=== PATIENT | male | born 1975 | race Caucasian/White ===

== ENCOUNTER 2017-12-11 07:03 | Emergency (ER) | payer MEDICAID, OTHER ==
[2017-12-11 07:09] VITALS: TEMP 98.1
[2017-12-11] MEDS ORDERED: Sodium Chloride 0.9% 1,000 ML IV ONE (07:33)
--- NOTE | 2017-12-11 07:35 | C.PDOC ---
History Of Present Illness 42 y/o male with history of ETOH abuse presents to ED stating he has been drinking for 4 days and is complaining of abdominal pain and vomiting. Patient denies fever, chills, diarrhea, back pain or any other complaints at this time. Patient has prior visits to ED for detox Time Seen by Provider: 12/11/17 07:21 Chief Complaint (Nursing): Abdominal Pain History Per: Patient History/Exam Limitations: no limitations Onset/Duration Of Symptoms: Days Current Symptoms Are (Timing): Still Present Past Medical History Reviewed: Historical Data, Nursing Documentation, Vital Signs Vital Signs: Last Vital Signs Temp 98.1 F 12/11/17 07:08 Pulse 105 H 12/11/17 10:06 Resp 18 12/11/17 10:06 BP 113/74 12/11/17 10:06 Pulse Ox 98 12/11/17 10:06 - Medical History PMH: Gastritis, HTN (no meds) Surgical History: No Surg Hx - [facility] Procedures ALCOHOL DETOXIFICATION (04/01/14) DETOXIFICATION SERVICES FOR SUBSTANCE ABUSE TREATMENT (08/04/16) GROUP PHOTOGRAPHIC EQUIPMENT INSPECTOR FOR SUBSTANCE ABUSE, COGNITIVE BEHAVIORAL (08/04/16) INTRODUCTION OF SERUM/TOX/VACCINE INTO MUSCLE, PERC APPROACH (02/11/16) Family History: States: No Known Family Hx - Social History Hx Tobacco Use: No Hx Alcohol Use: Yes Hx Substance Use: No - Immunization History Hx Tetanus Toxoid Vaccination: No Hx Influenza Vaccination: No Hx Pneumococcal Vaccination: No Review Of Systems Constitutional: Negative for: Fever, Chills Gastrointestinal: Positive for: Vomiting, Abdominal Pain Skin: Negative for: Rash Physical Exam - Physical Exam Appears: Non-toxic, No Acute Distress, Other (Mild tremors noted) Skin: Warm, Dry, No Rash Head: Atraumatic, Normacephalic Oral Mucosa: Moist Neck: Normal ROM, Supple Cardiovascular: Rhythm Regular Respiratory: Normal Breath Sounds, No Rales, No Rhonchi, No Wheezing Gastrointestinal/Abdominal: Soft, Tenderness (Upper abdomen), No Guarding, No Rebound Back: No CVA Tenderness Extremity: Normal ROM, Capillary Refill (<2 seconds) Neurological/Psych: Oriented x3, Normal Motor, Normal Sensation ED Course And Treatment - Laboratory Results Result Diagrams: 12/11/17 07:53 12/11/17 07:53 Lab Interpretation: Normal O2 Sat by Pulse Oximetry: 97 (RA) Pulse Ox Interpretation: Normal Progress Note: Treated with IVF NSS and Librium 25 mg PO. On re-evaluation abdomen soft nontender. declines detox evaluation, requesting discharge Reassessment Condition: Improved Medical Decision Making Medical Decision Making: Plan: Blood work, UA, Zofran and Iv fluids Disposition Counseled Patient/Family Regarding: Studies Performed, Diagnosis, Need For Followup - Disposition Referrals: Alcoholics Anonymous [Outside] [facility] [Outside] [facility] [Outside] Disposition: HOME/ ROUTINE Disposition Time: 10:00 Condition: STABLE Additional Instructions: Return to ED if any increase symptoms Stop alcohol use Instructions: Acute Nausea and Vomiting (ED), Alcohol Use Disorder (ED) Forms: [employer] ([place]) - POA Present On Arrival: None - Clinical Impression Clinical Impression: Nausea, Vomiting, Alcohol abuse - PA / TRICK RODEO RIDER / Resident Statement MD/DO has reviewed & agrees with the documentation as recorded. - Scribe Statement The provider has reviewed the documentation as recorded by the Clair Hassan All medical record entries made by the Jaquanibbelem were at my direction and personally dictated by me. I have reviewed the chart and agree that the record accurately reflects my personal performance of the history, physical exam, medical decision making, and the department course for this patient. I have also personally directed, reviewed, and agree with the discharge instructions and disposition.
[2017-12-11] MEDS ORDERED: Sodium Chloride 0.9% 1,000 ML ONE (07:54)
[2017-12-11 08:06] LABS: BASO % 0.5 % (0.0-2.0); EOS % 0.3 % (0.0-4.0); HEMOGLOBIN 16.9 g/dL (12.0-18.0); LYMPH # 1.4 K/uL (1.0-4.3); LYMPH % 15.2 % (20.0-40.0); MEAN CELL VOLUME 85.5 fL (80.0-94.0); MEAN CORPUSCULAR HEMOGLOBIN 29.8 pg (27.0-31.0); MEAN CORPUSCULAR HGB CONC 34.9 g/dL (33.0-37.0); MEAN PLATELET VOLUME 9.5 fL (7.2-11.7); MONO # 0.4 K/uL (0.0-0.8); MONO % 4.7 % (0.0-10.0); NEUT # 7.5 K/uL (1.8-7.0); NEUT % 79.3 % (50.0-75.0); RBC 5.68 Mil/uL (4.40-5.90); RED CELL DISTRIBUTION WIDTH 13.1 % (11.5-14.5); WHITE BLOOD COUNT 9.5 K/uL (4.8-10.8)
[2017-12-11 08:26] LABS: ALB/GLOB RATIO 1.3 (1.0-2.1); ALBUMIN 4.6 g/dL (3.5-5.0); ALT/SGPT 32 U/L (21-72); AST/SGOT 41 U/L (17-59); BLOOD UREA NITROGEN 20 mg/dL (9-20); CALCIUM 9.1 mg/dl (8.6-10.4); GFR AFRICAN-AMERICAN > 60; GFR NON-AFRICAN AMERICAN > 60; LIPASE 92 U/L (23-300); URINE BACTERIA RARE (<OCC); URINE BILIRUBIN NEGATIVE (NEGATIVE); URINE BLOOD NEGATIVE (NEGATIVE); URINE CLARITY Hazy (Clear); URINE COLOR Yellow (YELLOW); URINE GLUCOSE (UA) NORMAL (Normal); URINE LEUKOCYTE ESTERASE NEG Leu/uL (Negative); URINE NITRATE NEGATIVE (NEGATIVE); URINE PROTEIN 1+ mg/dL (NEGATIVE)
[2017-12-11 08:42] LABS: BARBITURATES, UR NEGATIVE (NEGATIVE); BENZODIAZEPINES, UR NEGATIVE (NEGATIVE); OPIATES, UR NEGATIVE (NEGATIVE); PHENCYCLIDINE, UR NEGATIVE (NEGATIVE)
[2017-12-11 10:07] VITALS: BP 113/74; PULSE 105; RESP 18
[2017-12-11 18:15] VITALS: O2SAT 97
== END 2017-12-11 10:08 | disposition home or self-care (01) ==
LOC: C.ER 07:03
DX: R11.2 Nausea with vomiting, unspecified (principal); F10.10 Alcohol abuse, uncomplicated; Y90.2 Blood alcohol level of 40-59 mg/100 ml
CPT/HCPCS: 80053; 80320; 80324; 80345; 80346; 80349; 80353; 80358; 80361; 81001; 83690; 83992; 85025; 96361; 96374; 96375; 99285; J2405; J7040

== ENCOUNTER 2018-02-13 14:19 | Emergency (ER) | payer OTHER ==
[2018-02-13 15:43] LABS: BASO % 0.4 % (0.0-2.0); EOS % 0.3 % (0.0-4.0); LYMPH # 0.7 K/uL (1.0-4.3); LYMPH % 9.9 % (20.0-40.0); MEAN CELL VOLUME 86.1 fL (80.0-94.0); MEAN CORPUSCULAR HGB CONC 34.8 g/dL (33.0-37.0); MEAN PLATELET VOLUME 8.4 fL (7.2-11.7); MONO # 0.4 K/uL (0.0-0.8); MONO % 5.3 % (0.0-10.0); NEUT # 5.8 K/uL (1.8-7.0); NEUT % 84.1 % (50.0-75.0); NRBC % 0.1 % (0.0-2.0); PLATELET COUNT 173 K/uL (130-400); RBC 5.67 Mil/uL (4.40-5.90); RED CELL DISTRIBUTION WIDTH 13.5 % (11.5-14.5); WHITE BLOOD COUNT 6.9 K/uL (4.8-10.8)
[2018-02-13] MEDS ORDERED: Folic Acid 1 MG, Thiamine 100 MG, Multivitamin (MVI) 10 ML in Dextrose 5% In Water 1,00... IV SCH (15:45)
[2018-02-13 16:08] LABS: ALB/GLOB RATIO 1.2 (1.0-2.1); ALBUMIN 5.1 g/dL (3.5-5.0); ALT/SGPT 173 U/L (21-72); AST/SGOT 245 U/L (17-59); BLOOD UREA NITROGEN 18 mg/dL (9-20); CALCIUM 9.1 mg/dl (8.6-10.4); GFR AFRICAN-AMERICAN > 60; GFR NON-AFRICAN AMERICAN > 60; LIPASE 128 U/L (23-300)
[2018-02-13 16:32] LABS: SQUAMOUS EPITHIAL < 1 /hpf (0-5); URINE BILIRUBIN NEGATIVE (NEGATIVE); URINE BLOOD 1+ (NEGATIVE); URINE CLARITY Hazy (Clear); URINE GLUCOSE (UA) NORMAL (Normal); URINE LEUKOCYTE ESTERASE NEG Leu/uL (Negative); URINE PROTEIN 3+ mg/dL (NEGATIVE)
[2018-02-13 16:35] LABS: URINE COLOR YELLOW (YELLOW)
[2018-02-13] MEDS ORDERED: Aluminum Hydroxide/Magnesium Hydroxide Susp (30 mL) PO STA (16:45)
[2018-02-13 16:58] LABS: BARBITURATES, UR NEGATIVE (NEGATIVE); BENZODIAZEPINES, UR NEGATIVE (NEGATIVE); OPIATES, UR NEGATIVE (NEGATIVE); PHENCYCLIDINE, UR NEGATIVE (NEGATIVE)
[2018-02-13] MEDS ORDERED: Folic Acid 1 MG, Thiamine 100 MG, Multivitamin (MVI) 10 ML in Sodium Chloride 0.9% 1,00... IV ONE (17:00)
[2018-02-13] MEDS ORDERED: Morphine 4 MG/ML VIAL ONE (17:02)
[2018-02-13] MEDS ORDERED: Aluminum Hydroxide/Magnesium Hydroxide Susp (30 mL) ONE (17:03)
--- NOTE | 2018-02-13 17:22 | RAD ---
PROCEDURE: Chest radiograph dated 02/13/2018 HISTORY: Detox. Psych COMPARISON: None available. FINDINGS: LUNGS: Clear. PLEURA: No pneumothorax or pleural fluid seen. CARDIOVASCULAR: Normal. OSSEOUS STRUCTURES: No significant abnormalities. VISUALIZED UPPER ABDOMEN: Normal. OTHER FINDINGS: None. IMPRESSION: No active disease.
[2018-02-13 17:39] LABS: LYMPHOCYTE 5 % (20-40); MONOCYTE 8 % (0-10); NEUTROPHIL 87 % (50-75); TOTAL CELLS COUNTED 100
[2018-02-13 17:40] LABS: ANISOCYTOSIS SLIGHT; OVALOCYTES SLIGHT; PLATELET ESTIMATE NORMAL (NORMAL); POIKILOCYTOSIS SLIGHT
--- NOTE | 2018-02-13 18:01 | C.PDOC ---
History Of Present Illness 42 year old male, whose PMHx includes alcoholism, presents to the ED for evaluation of epigastric abdominal pain and states he is feeling tremulous. Patient states he was sober for around 7 months while he was in a program. Upon release from the program, patient gradually started drinking again. Patient admits he has been drinking day/night and has been eating very little for the past 3 weeks. Patient states he drinks Vodka and his last drink was this morning. Patient states his pain is sharp and is associated with nausea, vomiting, and blood-streaked stool. He denies fever, chills, headache, dizziness. Time Seen by Provider: 02/13/18 15:00 Chief Complaint (Nursing): Substance Abuse History Per: Patient History/Exam Limitations: no limitations Onset/Duration Of Symptoms: Hrs Current Symptoms Are (Timing): Still Present Suicide/Self Injury Attempted (Context): None Modifying Factor(s): Alcohol Additional History Per: Patient Past Medical History Reviewed: Historical Data, Nursing Documentation, Vital Signs Vital Signs: Last Vital Signs Temp 97.8 F 02/13/18 14:48 Pulse 101 H 02/13/18 14:48 Resp 20 02/13/18 14:48 BP 144/88 02/13/18 14:48 Pulse Ox 98 02/13/18 18:20 - Medical History PMH: Gastritis, HTN (no meds) Denies: Diabetes, Hepatitis, HIV, Chronic Kidney Disease, Seizures, Sexually Transmitted Disease Surgical History: No Surg Hx - [facility] Procedures ALCOHOL DETOXIFICATION (04/01/14) DETOXIFICATION SERVICES FOR SUBSTANCE ABUSE TREATMENT (08/04/16) GROUP TRADER FIXED INCOME FOR SUBSTANCE ABUSE, COGNITIVE BEHAVIORAL (08/04/16) INTRODUCTION OF SERUM/TOX/VACCINE INTO MUSCLE, PERC APPROACH (02/11/16) Family History: States: Unknown Family Hx - Social History Hx Tobacco Use: No Hx Alcohol Use: Yes Hx Substance Use: No - Immunization History Hx Tetanus Toxoid Vaccination: No Hx Influenza Vaccination: No Hx Pneumococcal Vaccination: No Review Of Systems Constitutional: Negative for: Fever, Chills Gastrointestinal: Positive for: Nausea, Vomiting, Abdominal Pain (epigastric ), Other (blood-streaked stool ) Neurological: Positive for: Other (tremulous ). Negative for: Headache, Dizziness Physical Exam - Physical Exam Appears: Non-toxic, No Acute Distress Skin: Normal Color, Warm, Dry Head: Atraumatic, Normacephalic Eye(s): bilateral: Normal Inspection Oral Mucosa: Moist Neck: Supple Chest: Symmetrical, No Deformity, No Tenderness Cardiovascular: Rhythm Regular, No Murmur Respiratory: Normal Breath Sounds, No Rales, No Rhonchi, No Wheezing Gastrointestinal/Abdominal: Soft, Tenderness (epigastric ), No Guarding, No Rebound Extremity: Normal ROM (bilateral upper and lower extremities ), Capillary Refill (less than 2 seconds ) Neurological/Psych: Oriented x3, Normal Speech, Normal Cognition, Other (very tremulous ) ED Course And Treatment - Laboratory Results Result Diagrams: 02/13/18 15:39 02/13/18 15:39 O2 Sat by Pulse Oximetry: 98 (on RA) Pulse Ox Interpretation: Normal - Other Rad CXR X-Ray: Interpreted by Me, Viewed By Me, Read By Radiologist Interpretation: PROCEDURE: Chest radiograph dated 02/13/2018. HISTORY: Detox. Psych. COMPARISON: None available. FINDINGS: LUNGS: Clear. PLEURA : No pneumothorax or pleural fluid seen. CARDIOVASCULAR: Normal. OSSEOUS STRUCTURES: No significant abnormalities. VISUALIZED UPPER ABDOMEN: Normal. OTHER FINDINGS: None. IMPRESSION: No active disease. Medical Decision Making Medical Decision Making: Progress: Bloodwork, UA, CXR, EKG ordered and reviewed. Ativan IVP and Banana Bag administered. Patient is also requesting detox. He is informed about the unavailability of detox beds at this time. Patient feeling slightly better at this time. He is receiving IV fluids (banana bag) . States he will be able to stay at his sisters's house and try to stop drinking. Will d/c with Librium. Vital signs stable at this time. Disposition Counseled Patient/Family Regarding: Diagnosis, Need For Followup, Rx Given - Disposition Referrals: [facility] [Outside] Disposition: HOME/ ROUTINE Disposition Time: 18:36 Condition: GUARDED Additional Instructions: Regrese a la joe de emergencia si tiene dolor, esta sangrando por el rectum o cualquier otro problema. Prescriptions: chlordiazePOXIDE [Chlordiazepoxide HCl] 25 mg PO TID #12 cap Famotidine [Pepcid] 20 mg PO HS #30 tab Instructions: Alcohol Abuse and Alcoholism (DC) Forms: Gen Discharge Inst Palestinian, [employer] Connect (Palestinian), Work Excuse - POA Present On Arrival: None - Clinical Impression Clinical Impression: Alcohol abuse - Scribe Statement The provider has reviewed the documentation as recorded by the Scribe (Sun Alvarado) Provider Attestation: All medical record entries made by the Scribe were at my direction and personally dictated by me. I have reviewed the chart and agree that the record accurately reflects my personal performance of the history, physical exam, medical decision making, and the department course for this patient. I have also personally directed, reviewed, and agree with the discharge instructions and disposition.
[2018-02-13 21:13] VITALS: BP 133/81; PULSE 105; RESP 20; TEMP 98.3; O2SAT 98
== END 2018-02-13 21:33 | disposition home or self-care (01) ==
LOC: C.ER 14:19
DX: F10.10 Alcohol abuse, uncomplicated (principal); Y90.4 Blood alcohol level of 80-99 mg/100 ml
CPT/HCPCS: 71045; 80053; 80320; 80324; 80345; 80346; 80349; 80353; 80358; 80361; 81001; 83690; 83992; 85025; 96374; 96375; 99285; J2060; J2270; J2765; J3411; J7040

== ENCOUNTER 2018-03-22 11:53 | Emergency (ER) | payer OTHER ==
[2018-03-22 12:03] VITALS: BP 131/79; PULSE 89; TEMP 97.9; O2SAT 97
[2018-03-22] MEDS ORDERED: Bacitracin 500 Units/gm Oint Foilpak UD TOP ONE (12:09)
[2018-03-22] MEDS ORDERED: Bacitracin 500 Units/gm Oint Foilpak UD ONE (12:14)
--- NOTE | 2018-03-22 12:14 | C.PDOC ---
History Of Present Illness 43 yo male came to ED for wound check. Pt notes he was at work, a piece of metal fell on his finger and cut it. Pt was evaluated in [facility], had negative XR, suture repair, and given tetanus. Pt notes he has soreness and swelling to the area where the tetanus was injected. Notes the area has improved. No change in sensation fever, or discharge to the area. Pt notes he went to work yesterday and experienced some pain to his finger. Time Seen by Provider: 03/22/18 12:04 Chief Complaint (Nursing): Wound Check History Per: Patient History/Exam Limitations: no limitations Onset/Duration Of Symptoms: Days Ago (2) Past Medical History Vital Signs: Last Vital Signs Temp 97.9 F 03/22/18 12:00 Pulse 89 03/22/18 12:00 Resp 19 03/22/18 12:00 BP 131/79 03/22/18 12:00 Pulse Ox 97 03/22/18 12:18 - Medical History PMH: Gastritis, HTN (no meds) Denies: Diabetes, Hepatitis, HIV, Chronic Kidney Disease, Seizures, Sexually Transmitted Disease Other PMH: alcoholism - [facility] Procedures ALCOHOL DETOXIFICATION (04/01/14) DETOXIFICATION SERVICES FOR SUBSTANCE ABUSE TREATMENT (08/04/16) GROUP ADULT EDUCATOR FOR SUBSTANCE ABUSE, COGNITIVE BEHAVIORAL (08/04/16) INTRODUCTION OF SERUM/TOX/VACCINE INTO MUSCLE, PERC APPROACH (02/11/16) Family History: States: Unknown Family Hx - Social History Hx Tobacco Use: No Hx Alcohol Use: Yes Hx Substance Use: No - Immunization History Hx Tetanus Toxoid Vaccination: Yes Hx Influenza Vaccination: No Hx Pneumococcal Vaccination: No Review Of Systems Except As Marked, All Systems Reviewed And Found Negative. Physical Exam - Physical Exam Appears: Well, Non-toxic, No Acute Distress Skin: Warm, Dry, Other ((+) L 5th finger with suture intact, no erythema, no discharge. Mild tenderness. Full ROM. (+) mild tenderness and swelling to the left deltoid , no fluctuance , no increased warmth, no erythema. ) Head: Atraumatic, Normacephalic Eye(s): bilateral: Normal Inspection, EOMI Nose: Normal Oral Mucosa: Moist Neck: Normal, Normal ROM, Supple Chest: Symmetrical Respiratory: No Accessory Muscle Use Extremity: Normal ROM, Capillary Refill (<2 sec) Pulses: Left Radial: Normal, Right Radial: Normal Neurological/Psych: Oriented x3, Normal Speech, Normal Motor, Normal Sensation ED Course And Treatment O2 Sat by Pulse Oximetry: 97 Progress Note: RN cleaned and dressed wound. Pt notes symptoms of tetanus injection pain and swelling has improved, will continue to monitor. No signs of infection to laceration. Instructed to continue antibiotics. Discussed signs of concern, wound check with PMD in 1-2 days or return to ER if symptoms persist or worsen. Disposition - Disposition Disposition: HOME/ ROUTINE Disposition Time: 12:11 Condition: STABLE Additional Instructions: Continue antibiotics. Watch for signs of infection including redness, swelling and discharge. If any arise, return to ER right away. Suture removal in 7 days. Instructions: Wound Care (DC) Forms: [facility] (Spanish) - Clinical Impression Clinical Impression: Vaccine reaction, Visit for wound check
[2018-03-22 12:32] VITALS: RESP 18
== END 2018-03-22 12:31 | disposition home or self-care (01) ==
LOC: C.ER 11:53
DX: Z48.00 Encounter for change or removal of nonsurgical wound dressing (principal); T88.1XXA Other complications following immunization, not elsewhere classified, initial encounter